=== PATIENT | male | born 1960 | race Caucasian/White ===

== ENCOUNTER 2016-05-17 00:17 | Emergency (ER) | payer BC ==
--- NOTE | 2016-05-17 01:35 | ED ---
Tyler Bentley Adam, scribed for Bobby Bell MD on 05/17/16 at 0046 . Throat Pain/Nasal Congestion - HPI Summary HPI Summary: Pt is a 55 year old male presenting with sore/swollen throat. He states that he woke up 1.5 hours ago with a "funny feeling" in his throat. He went to look in the mirror and he states that his epiglottis appeared swollen. He began to have an active gag reflex and reports dry heaving. Pt denies any recent illness. He reports that he made a recent trip to [place] which involved swimming and sitting in a steam sauna. - History of Current Complaint Chief Complaint: EDThroatPain Time Seen by Provider: 05/17/16 00:40 Hx Obtained From: Patient Onset/Duration: Sudden Onset, Lasting Hours, Still Present Severity: Moderate Associated Signs And Symptoms: Positive: Negative Cough: None - Allergies/Home Medications Allergies/Adverse Reactions: Allergies Allergy/AdvReac Type Severity Reaction Status Date / Time Penicillins Allergy Unknown Unknown Verified 05/17/16 00:22 Reaction Details PMH/Surg Hx/FS Hx/Imm Hx Previously Healthy: Yes Infectious Disease History: No Infectious Disease History: Denies: Traveled Outside the [place] in Last 30 Days - Family History Known Family History: Positive: None - Patient denies any health problems in his parents or other FMHx Negative: Cardiac Disease, Hypertension, Diabetes - Social History Occupation: Employed Full-time Lives: Alone Alcohol Use: Occasionally Hx Substance Use: No Substance Use Type: Reports: None Hx Tobacco Use: No Smoking Status (MU): Never Smoked Tobacco Review of Systems Negative: Fever Positive: Sore Throat Positive: Other - Gagging, dry heaving All Other Systems Reviewed And Are Negative: Yes Physical Exam Triage Information Reviewed: Yes Vital Signs On Initial Exam: Initial Vitals Temp Pulse Resp BP Pulse Ox 96.6 F 101 15 146/99 98 05/17/16 00:18 05/17/16 00:18 05/17/16 00:18 05/17/16 00:18 05/17/16 00:18 Vital Signs Reviewed: Yes Appearance: Positive: Well-Appearing, No Pain Distress Skin: Positive: Warm Head/Face: Positive: Normal Head/Face Inspection Eyes: Positive: WADE ENT: Positive: Pharyngeal erythema, TMs normal, Other - mild swollen uvula. Negative: Tonsillar swelling, Tonsillar exudate Neck: Positive: Supple, Nontender Respiratory/Lung Sounds: Positive: Breath Sounds Present Cardiovascular: Positive: RRR Musculoskeletal: Positive: Strength/ROM Intact Neurological: Positive: Alert, Oriented to Person Place, Time - Cindy Coma Scale Coma Scale Total: 15 Diagnostics - Vital Signs Vital Signs Temp Pulse Resp BP Pulse Ox 05/17/16 00:18 96.6 F 101 15 146/99 98 - Laboratory Lab Results: Lab Results 05/17/16 Range/Units 01:01 Group A Strep Rapid Negative (Negative) Lab Statement: Any lab studies that have been ordered have been reviewed, and results considered in the medical decision making process. - Additional Comments Diagnostic Additional Comments: Group A Strep Rapid - Negative EENT Course/Dx - Diagnoses Provider Diagnoses: URI (upper respiratory infection) Discharge - Discharge Plan Condition: Stable Disposition: HOME Patient Education Materials: Upper Respiratory Infection (ED) Referrals: Cecil Peña MD [Primary Care Provider] - Additional Instructions: Follow up with Dr. Peña. The documentation as recorded by the Tyler krueger Adam accurately reflects the service I personally performed and the decisions made by me, Bobby Bell MD.
[2016-05-17 01:57] VITALS: BP 119/81
== END 2016-05-17 01:51 | disposition home or self-care (01) ==
LOC: ED 00:17
DX: J06.9 Acute upper respiratory infection, unspecified (principal); J02.9 Acute pharyngitis, unspecified
CPT/HCPCS: 87651; 99282